=== PATIENT | male | born 1935 | race Caucasian/White ===

== ENCOUNTER 2017-11-23 13:02 | Inpatient (IN) | payer OTHER, MEDICARE ==
[~2017-11-23] VITALS: Ht 193 cm; Wt 90.9 kg
[2017-11-23 13:54] LABS: BASOPHILS % (AUTO) 0.5 % (0-1); EOSINOPHILS # (AUTO) 0.1 X10'3 (0-0.9); EOSINOPHILS % (AUTO) 0.9 % (0-6); HEMOGLOBIN 12.9 g/dl (14.0-17.9); LYMPHOCYTES # (AUTO) 0.7 X10'3 (1.1-4.8); LYMPHOCYTES % (AUTO) 9.6 % (21-51); MEAN CORPUSCULAR HEMOGLOBIN 31.9 PG (27.0-31.0); MEAN CORPUSCULAR VOLUME 96.7 FL (78-98); MEAN PLATELET VOLUME 9.2 FL (7.4-10.4); MONOCYTES # (AUTO) 0.9 X10'3 (0-0.9); MONOCYTES % (AUTO) 12.2 % (2-12); NEUTROPHILS # (AUTO) 5.6 X10'3 (1.8-7.7); NEUTROPHILS % (AUTO) 76.8 % (42-75); PLATELET COUNT 211 X10'3 (140-440); RED BLOOD COUNT 4.04 X10'6 (4.70-6.10); RED CELL DISTRIBUTION WIDTH 15.2 % (11.5-14.5); WHITE BLOOD COUNT 7.3 X10'3 (4.5-11.0)
[2017-11-23 14:03] LABS: INR 1.1 INR; PARTIAL THROMBOPLASTIN TIME 31 SECONDS (22-32); PROTHROMBIN TIME 11.4 SECONDS (9.0-12.0)
[2017-11-23 14:09] LABS: ALANINE AMINOTRANSFERASE 95 U/L (12-78); ALBUMIN 3.2 G/DL (3.4-5.0); ALBUMIN/GLOBULIN RATIO 0.8 (1.1-1.5); ALKALINE PHOSPHATASE 87 IU/L (46-116); ANION GAP 10 (8-16); ASPARTATE AMINO TRANSFERASE 81 U/L (10-37); BILIRUBIN,TOTAL 0.4 MG/DL (0.1-1.0); BLOOD UREA NITROGEN 48 MG/DL (7-18); BUN/CREATININE RATIO 31.6 (5.4-32.0); CALCIUM 8.7 MG/DL (8.5-10.1); CHLORIDE 102 MMOL/L (99-107); CREATININE 1.52 MG/DL (0.60-1.10); GLUCOSE 146 MG/DL (70-104); POTASSIUM 4.6 MMOL/L (3.5-5.1); SODIUM 141 MMOL/L (135-145); TOTAL CARBON DIOXIDE 28.8 MMOL/L (24-32); TOTAL PROTEIN 7.4 G/DL (6.4-8.2); eGFR 44 ML/MIN
[2017-11-23] MEDS ORDERED: heparin 10,000 units/1 ML INJ IV PRN ×2 (14:20→15:55)
[2017-11-23] MEDS ORDERED: heparin 10,000 units/1 ML INJ IV ONE ×2 (14:20→15:55)
[2017-11-23] MEDS ORDERED: normal saline 500ml IV soln 1,000 ML IV ONE (14:30)
[2017-11-23] MEDS ORDERED: LORazepam 2 mg/ml vial IV PRN ×2 (15:40→15:55)
[2017-11-23] MEDS ORDERED: acetaminophen 325mg tablet PO PRN (15:55)
[2017-11-23] MEDS ORDERED: magnesium 4gm in 100ml NS 100 ML IV PRN (15:55)
[2017-11-23] MEDS ORDERED: potassium Cl 20 mEq SR tablet PO PRN ×2 (15:55)
[2017-11-23] MEDS ORDERED: HYDROcodone/acetaminophen 10/325mg tab PO PRN (15:55)
[2017-11-23] MEDS ORDERED: magnesium hydroxide 30ml (MOM) UD suspension PO PRN (15:55)
[2017-11-23] MEDS ORDERED: magnesium Cl slow-release 64mg tablet PO PRN (15:55)
[2017-11-23] MEDS ORDERED: methylPREDNISolone sod succ 125mg/2ml vial IV ONE (15:55)
[2017-11-23] MEDS ORDERED: ondansetron/PF 4mg/2ml inj IV PRN (15:55)
[2017-11-23] MEDS ORDERED: MORPHINE 2MG in 2ml NS syringe IV PRN (15:55)
[2017-11-23] MEDS ORDERED: mag hydrox/Alum hydrox/simeth 30ml oral suspension PO PRN (15:55)
[2017-11-23] MEDS ORDERED: albuterol 2.5 MG/3 ML nebule NEB PRN (15:55)
[2017-11-23] MEDS ORDERED: magnesium 2GM in 50ml NS 50 ML IV PRN (15:55)
[2017-11-23] MEDS ORDERED: potassium Cl 40MEQ/NS 500ml 500 ML IV PRN ×2 (15:55)
[2017-11-23] MEDS: methylPREDNISolone sod succ/PF 40mg inj. IV SCH (19:37)
[2017-11-23 20:50] LABS: ABG BASE EXCESS -1.3 mmol/L (-2.0-3.0); ABG HCO3 26.3 mmol/L (22.0-26.0); ABG OXYGEN SATURATION 97.8 % (95-98); ABG PCO2 (T) 57.2 mmHg (35.0-48.0); ABG PH (T) 7.281 (7.350-7.450); ABG PO2 (T) 127.6 mmHg (83-108); ALLEN'S TEST Positive; FCOHb 0.7 % (0.5-1.5); FLOW 15 L/min; FMetHb 0.1 % (0.3-1.12); RESPIRATORY RATE (OBSERVED) 20 b/min; TOTAL HEMOGLOBIN 13.1 G/dl (14.0-18.0)
[2017-11-23] MEDS ORDERED: temazepam 15mg capsule PO PRN (21:00)
[2017-11-23] MEDS: ipratropium/albuterol 3ml nebule NEB PRN ×2 (21:03→23:10)
[2017-11-23 23:06] LABS: PARTIAL THROMBOPLASTIN TIME 76 SECONDS (22-32)
[2017-11-24 02:11] LABS: BASOPHILS % (AUTO) 0.1 % (0-1); EOSINOPHILS % (AUTO) 0.6 % (0-6); HEMOGLOBIN 12.4 g/dl (14.0-17.9); LYMPHOCYTES # (AUTO) 0.5 X10'3 (1.1-4.8); LYMPHOCYTES % (AUTO) 8.3 % (21-51); MEAN CORPUSCULAR HEMOGLOBIN 32.2 PG (27.0-31.0); MEAN CORPUSCULAR HGB CONC 33.6 % (33.0-36.5); MEAN CORPUSCULAR VOLUME 95.9 FL (78-98); MEAN PLATELET VOLUME 8.8 FL (7.4-10.4); MONOCYTES # (AUTO) 0.2 X10'3 (0-0.9); MONOCYTES % (AUTO) 3.6 % (2-12); NEUTROPHILS # (AUTO) 4.8 X10'3 (1.8-7.7); NEUTROPHILS % (AUTO) 87.4 % (42-75); PLATELET COUNT 195 X10'3 (140-440); RED BLOOD COUNT 3.86 X10'6 (4.70-6.10); RED CELL DISTRIBUTION WIDTH 15.3 % (11.5-14.5); WHITE BLOOD COUNT 5.5 X10'3 (4.5-11.0)
[2017-11-24] MEDS: ipratropium/albuterol 3ml nebule NEB PRN (02:18)
[2017-11-24 02:30] LABS: ALBUMIN 3.1 G/DL (3.4-5.0); ANION GAP 7 (8-16); BLOOD UREA NITROGEN 45 MG/DL (7-18); BUN/CREATININE RATIO 36.3 (5.4-32.0); CALCIUM 9.1 MG/DL (8.5-10.1); CHLORIDE 104 MMOL/L (99-107); CREATININE 1.24 MG/DL (0.60-1.10); GLUCOSE 172 MG/DL (70-104); MAGNESIUM 2.1 MG/DL (1.5-2.4); POTASSIUM 5.3 MMOL/L (3.5-5.1); SODIUM 141 MMOL/L (135-145); eGFR 56 ML/MIN
[2017-11-24] MEDS: methylPREDNISolone sod succ/PF 40mg inj. IV SCH ×5 (02:39→19:51)
[2017-11-24] MEDS ORDERED: MOME13HF2 INH (06:01)
[2017-11-24] MEDS ORDERED: haloperidol lactate 5mg/ml inj IM STA (06:10)
[2017-11-24 08:00] VITALS: BP 104/71
[2017-11-24] MEDS: K and/or MAG REPLACEMENT MC SCH (08:00)
[2017-11-24] MEDS: aspirin 325mg tablet PO SCH (08:30)
[2017-11-24 09:00] VITALS: BP 93/62
[2017-11-24 11:00] VITALS: BP 93/60
[2017-11-24 11:05] LABS: ABG BASE EXCESS 0.5 mmol/L (-2.0-3.0); ABG HCO3 26.4 mmol/L (22.0-26.0); ABG OXYGEN SATURATION 88.2 % (95-98); ABG PCO2 (T) 47.4 mmHg (35.0-48.0); ABG PH (T) 7.363 (7.350-7.450); ABG PO2 (T) 61.1 mmHg (83-108); ALLEN'S TEST Positive; FCOHb 0.3 % (0.5-1.5); FLOW 15 L/min; FMetHb 0.2 % (0.3-1.12); FO2Hb 87.8 % (94-100); RESPIRATORY RATE (OBSERVED) 18 b/min; TOTAL HEMOGLOBIN 12.6 G/dl (14.0-18.0)
[2017-11-24 15:00] VITALS: BP 92/66
[2017-11-24 18:00] VITALS: BP 108/72
[2017-11-24] MEDS ORDERED: morphine 4 MG/ML inj SYRINge IV PRN (19:58)
[2017-11-24 22:00] VITALS: BP 98/62
[2017-11-25 01:42] LABS: BASOPHILS # (AUTO) 0.1 X10'3 (0-0.2); BASOPHILS % (AUTO) 0.8 % (0-1); EOSINOPHILS % (AUTO) 0 % (0-6); HEMATOCRIT 36.1 % (42.0-52.0); HEMOGLOBIN 12.1 g/dl (14.0-17.9); LYMPHOCYTES # (AUTO) 0.6 X10'3 (1.1-4.8); LYMPHOCYTES % (AUTO) 5.1 % (21-51); MEAN CORPUSCULAR HGB CONC 33.4 % (33.0-36.5); MEAN CORPUSCULAR VOLUME 95.7 FL (78-98); MEAN PLATELET VOLUME 9.6 FL (7.4-10.4); MONOCYTES # (AUTO) 0.5 X10'3 (0-0.9); MONOCYTES % (AUTO) 4.6 % (2-12); NEUTROPHILS # (AUTO) 9.7 X10'3 (1.8-7.7); NEUTROPHILS % (AUTO) 89.5 % (42-75); PLATELET COUNT 209 X10'3 (140-440); RED BLOOD COUNT 3.77 X10'6 (4.70-6.10); RED CELL DISTRIBUTION WIDTH 14.4 % (11.5-14.5); WHITE BLOOD COUNT 10.9 X10'3 (4.5-11.0)
[2017-11-25 01:52] LABS: ALBUMIN 2.9 G/DL (3.4-5.0); ANION GAP 5 (8-16); BLOOD UREA NITROGEN 47 MG/DL (7-18); BUN/CREATININE RATIO 42.7 (5.4-32.0); CALCIUM 8.9 MG/DL (8.5-10.1); CHLORIDE 106 MMOL/L (99-107); GLUCOSE 150 MG/DL (70-104); MAGNESIUM 2.2 MG/DL (1.5-2.4); POTASSIUM 5.1 MMOL/L (3.5-5.1); SODIUM 142 MMOL/L (135-145); TOTAL CARBON DIOXIDE 30.8 MMOL/L (24-32); eGFR 64 ML/MIN
[2017-11-25 02:00] VITALS: BP 85/51
[2017-11-25] MEDS: methylPREDNISolone sod succ/PF 40mg inj. IV SCH ×4 (02:12→20:24)
[2017-11-25 06:00] VITALS: BP 97/60
[2017-11-25] MEDS: aspirin 325mg tablet PO SCH (07:36)
[2017-11-25] MEDS: K and/or MAG REPLACEMENT MC SCH (08:00)
[2017-11-25 11:00] VITALS: BP 91/65
[2017-11-25 15:00] VITALS: BP 116/66
[2017-11-25 18:00] VITALS: BP 111/73
[2017-11-25 22:00] VITALS: BP 101/70
[2017-11-26 02:00] VITALS: BP 88/59
[2017-11-26] MEDS: methylPREDNISolone sod succ/PF 40mg inj. IV SCH ×4 (02:22→20:21)
[2017-11-26 05:49] LABS: BASOPHILS % (AUTO) 0.1 % (0-1); EOSINOPHILS % (AUTO) 0 % (0-6); HEMATOCRIT 33.2 % (42.0-52.0); HEMOGLOBIN 11.2 g/dl (14.0-17.9); LYMPHOCYTES # (AUTO) 0.4 X10'3 (1.1-4.8); LYMPHOCYTES % (AUTO) 3.9 % (21-51); MEAN CORPUSCULAR HGB CONC 33.7 % (33.0-36.5); MEAN PLATELET VOLUME 9.5 FL (7.4-10.4); MONOCYTES # (AUTO) 0.8 X10'3 (0-0.9); MONOCYTES % (AUTO) 7.3 % (2-12); NEUTROPHILS # (AUTO) 9.4 X10'3 (1.8-7.7); NEUTROPHILS % (AUTO) 88.7 % (42-75); PLATELET COUNT 192 X10'3 (140-440); RED CELL DISTRIBUTION WIDTH 15.2 % (11.5-14.5); WHITE BLOOD COUNT 10.6 X10'3 (4.5-11.0)
[2017-11-26 06:00] VITALS: BP 90/63
[2017-11-26 06:43] LABS: ALBUMIN 2.6 G/DL (3.4-5.0); ANION GAP 8 (8-16); BLOOD UREA NITROGEN 48 MG/DL (7-18); CALCIUM 8.8 MG/DL (8.5-10.1); CHLORIDE 104 MMOL/L (99-107); GLUCOSE 156 MG/DL (70-104); MAGNESIUM 2.1 MG/DL (1.5-2.4); POTASSIUM 4.7 MMOL/L (3.5-5.1); SODIUM 142 MMOL/L (135-145); TOTAL CARBON DIOXIDE 29.7 MMOL/L (24-32); eGFR 71 ML/MIN
[2017-11-26] MEDS: K and/or MAG REPLACEMENT MC SCH (08:00)
[2017-11-26 11:00] VITALS: BP 115/77
[2017-11-26] MEDS: aspirin 325mg tablet PO SCH (11:00)
[2017-11-26] MEDS: ipratropium/albuterol 3ml nebule NEB SCH ×4 (11:30→23:07)
[2017-11-26] MEDS ORDERED: CefTRIAXone/D5W-Rocephin 1gm 50 ML IV ONE (11:30)
[2017-11-26 15:00] VITALS: BP 110/76
[2017-11-26] MEDS ORDERED: iohexol 350MG/ML 100ml bottle IV ONE (17:20)
[2017-11-26 18:00] VITALS: BP 117/71
[2017-11-26 20:01] LABS: ABG BASE EXCESS 4.4 mmol/L (-2.0-3.0); ABG HCO3 29.9 mmol/L (22.0-26.0); ABG OXYGEN SATURATION 81.3 % (95-98); ABG PCO2 (T) 46.7 mmHg (35.0-48.0); ABG PH (T) 7.421 (7.350-7.450); ABG PO2 (T) 44.3 mmHg (83-108); ALLEN'S TEST Positive; FCOHb 0.9 % (0.5-1.5); FLOW 10 L/min; FMetHb 0.1 % (0.3-1.12); FO2Hb 80.5 % (94-100); PATIENT TEMPERATURE 36.2; TOTAL HEMOGLOBIN 13.2 G/dl (14.0-18.0)
[2017-11-26] MEDS: budesonide 0.5mg/2ml UD nebule IH SCH (20:06)
[2017-11-26] MEDS: DEXTROSE 5% IV SCH (20:21)
[2017-11-26] MEDS: DOXYCYCLINE IV SCH (20:21)
[2017-11-26] MEDS: WATER IV SCH (20:21)
[2017-11-26] MEDS ORDERED: haloperidol lactate 5mg/ml inj IM ONE (21:20)
[2017-11-26 22:00] VITALS: BP 117/69
[2017-11-27 02:00] VITALS: BP 101/65
[2017-11-27] MEDS: methylPREDNISolone sod succ/PF 40mg inj. IV SCH ×4 (02:16→21:11)
[2017-11-27] MEDS: ipratropium/albuterol 3ml nebule NEB SCH ×6 (02:58→22:52)
[2017-11-27 06:23] LABS: BASOPHILS % (AUTO) 0 % (0-1); EOSINOPHILS % (AUTO) 0 % (0-6); HEMATOCRIT 32.8 % (42.0-52.0); HEMOGLOBIN 10.9 g/dl (14.0-17.9); LYMPHOCYTES # (AUTO) 0.3 X10'3 (1.1-4.8); LYMPHOCYTES % (AUTO) 3.3 % (21-51); MEAN CORPUSCULAR HEMOGLOBIN 31.6 PG (27.0-31.0); MEAN CORPUSCULAR HGB CONC 33.1 % (33.0-36.5); MEAN CORPUSCULAR VOLUME 95.4 FL (78-98); MEAN PLATELET VOLUME 9.6 FL (7.4-10.4); MONOCYTES # (AUTO) 0.6 X10'3 (0-0.9); MONOCYTES % (AUTO) 6.5 % (2-12); NEUTROPHILS # (AUTO) 8.2 X10'3 (1.8-7.7); NEUTROPHILS % (AUTO) 90.2 % (42-75); PLATELET COUNT 197 X10'3 (140-440); RED BLOOD COUNT 3.44 X10'6 (4.70-6.10); RED CELL DISTRIBUTION WIDTH 14.8 % (11.5-14.5); WHITE BLOOD COUNT 9.1 X10'3 (4.5-11.0)
[2017-11-27 06:45] LABS: ALBUMIN 2.8 G/DL (3.4-5.0); ANION GAP 6 (8-16); BLOOD UREA NITROGEN 39 MG/DL (7-18); BUN/CREATININE RATIO 54.2 (5.4-32.0); CALCIUM 8.9 MG/DL (8.5-10.1); CHLORIDE 107 MMOL/L (99-107); CREATININE 0.72 MG/DL (0.60-1.10); GLUCOSE 124 MG/DL (70-104); MAGNESIUM 1.9 MG/DL (1.5-2.4); POTASSIUM 4.5 MMOL/L (3.5-5.1); SODIUM 143 MMOL/L (135-145); TOTAL CARBON DIOXIDE 29.8 MMOL/L (24-32); eGFR > 90 ML/MIN
[2017-11-27 07:00] VITALS: BP 127/72
[2017-11-27] MEDS: aspirin 325mg tablet PO SCH (07:32)
[2017-11-27] MEDS: CefTRIAXone/D5W-Rocephin 1gm 50 ML IV SCH (07:32)
[2017-11-27] MEDS: K and/or MAG REPLACEMENT MC SCH (08:00)
[2017-11-27] MEDS: WATER IV SCH ×2 (08:00→21:11)
[2017-11-27] MEDS: DEXTROSE 5% IV SCH ×2 (08:00→21:11)
[2017-11-27] MEDS: budesonide 0.5mg/2ml UD nebule IH SCH ×2 (08:00→19:40)
[2017-11-27] MEDS: DOXYCYCLINE IV SCH ×2 (08:00→21:11)
[2017-11-27 11:00] VITALS: BP 129/70
[2017-11-27 15:00] VITALS: BP 134/82
[2017-11-27 19:00] VITALS: BP 126/55
[2017-11-27] MEDS: lactobacillus rhamnosus 10,000 MMU CELLS/CAPSULE PO SCH (21:11)
[2017-11-27 23:00] VITALS: BP 136/80
[2017-11-28] MEDS: methylPREDNISolone sod succ/PF 40mg inj. IV SCH ×4 (02:17→19:48)
[2017-11-28 03:00] VITALS: BP 112/70
[2017-11-28] MEDS: ipratropium/albuterol 3ml nebule NEB SCH ×6 (03:22→23:02)
[2017-11-28 05:12] LABS: BASOPHILS % (AUTO) 0 % (0-1); EOSINOPHILS # (AUTO) 0.1 X10'3 (0-0.9); HEMATOCRIT 34.1 % (42.0-52.0); HEMOGLOBIN 11.3 g/dl (14.0-17.9); LYMPHOCYTES # (AUTO) 0.3 X10'3 (1.1-4.8); LYMPHOCYTES % (AUTO) 3.8 % (21-51); MEAN CORPUSCULAR HEMOGLOBIN 31.9 PG (27.0-31.0); MEAN CORPUSCULAR HGB CONC 33.2 % (33.0-36.5); MEAN CORPUSCULAR VOLUME 96.2 FL (78-98); MEAN PLATELET VOLUME 9.5 FL (7.4-10.4); MONOCYTES # (AUTO) 0.4 X10'3 (0-0.9); MONOCYTES % (AUTO) 4.1 % (2-12); NEUTROPHILS # (AUTO) 7.8 X10'3 (1.8-7.7); NEUTROPHILS % (AUTO) 91.1 % (42-75); PLATELET COUNT 201 X10'3 (140-440); RED BLOOD COUNT 3.55 X10'6 (4.70-6.10); RED CELL DISTRIBUTION WIDTH 15.2 % (11.5-14.5); WHITE BLOOD COUNT 8.6 X10'3 (4.5-11.0)
[2017-11-28 05:20] LABS: ALBUMIN 2.6 G/DL (3.4-5.0); ANION GAP 5 (8-16); BLOOD UREA NITROGEN 34 MG/DL (7-18); BUN/CREATININE RATIO 51.5 (5.4-32.0); CALCIUM 9.1 MG/DL (8.5-10.1); CHLORIDE 106 MMOL/L (99-107); CREATININE 0.66 MG/DL (0.60-1.10); GLUCOSE 114 MG/DL (70-104); POTASSIUM 4.8 MMOL/L (3.5-5.1); SODIUM 145 MMOL/L (135-145); TOTAL CARBON DIOXIDE 34.3 MMOL/L (24-32); eGFR > 90 ML/MIN
[2017-11-28 06:38] VITALS: BP 102/57
[2017-11-28] MEDS: CefTRIAXone/D5W-Rocephin 1gm 50 ML IV SCH (07:44)
[2017-11-28] MEDS: aspirin 325mg tablet PO SCH (07:45)
[2017-11-28] MEDS: DEXTROSE 5% IV SCH ×2 (07:45→19:48)
[2017-11-28] MEDS: WATER IV SCH ×2 (07:45→19:48)
[2017-11-28] MEDS: lactobacillus rhamnosus 10,000 MMU CELLS/CAPSULE PO SCH ×2 (07:45→19:48)
[2017-11-28] MEDS: DOXYCYCLINE IV SCH ×2 (07:45→19:48)
[2017-11-28] MEDS: K and/or MAG REPLACEMENT MC SCH (08:00)
[2017-11-28] MEDS: budesonide 0.5mg/2ml UD nebule IH SCH ×2 (08:58→19:23)
[2017-11-28 11:00] VITALS: BP 109/61
[2017-11-28 15:00] VITALS: BP 91/62
[2017-11-28 19:00] VITALS: BP 102/63
[2017-11-28 23:00] VITALS: BP 112/77
[2017-11-29] MEDS: methylPREDNISolone sod succ/PF 40mg inj. IV SCH (01:50)
[2017-11-29 03:00] VITALS: BP 111/70
[2017-11-29] MEDS: ipratropium/albuterol 3ml nebule NEB SCH ×3 (03:00→14:44)
[2017-11-29 06:30] VITALS: BP 123/79
[2017-11-29] MEDS: lactobacillus rhamnosus 10,000 MMU CELLS/CAPSULE PO SCH (08:00)
[2017-11-29] MEDS: CefTRIAXone/D5W-Rocephin 1gm 50 ML IV SCH (08:00)
[2017-11-29] MEDS: K and/or MAG REPLACEMENT MC SCH (08:00)
[2017-11-29] MEDS: aspirin 325mg tablet PO SCH (08:30)
[2017-11-29] MEDS ORDERED: OLANZapine **IM** 10 mg inj. IM ONE (09:10)
[2017-11-29] MEDS ORDERED: LORazepam 2 mg/ml vial IV PRN ×2 (09:10→15:35)
[2017-11-29] MEDS ORDERED: ipratropium/albuterol 3ml nebule NEB PRN (09:10)
[2017-11-29] MEDS ORDERED: OLANZapine 2.5MG tablet PO SCH (09:10)
[2017-11-29] MEDS ORDERED: OLANZapine 5mg rapidly disint. tablet PO SCH (09:20)
[2017-11-29 11:00] VITALS: BP 89/46
[2017-11-29] MEDS ORDERED: methylPREDNISolone sod succ/PF 40mg inj. IV SCH (14:00)
[2017-11-29 15:00] VITALS: BP 88/59
[2017-11-29] MEDS ORDERED: morphine 10mg/ml inj. IV PRN ×3 (15:35→15:50)
[2017-11-30] MEDS ORDERED: ondansetron 4mg rapidly disintigrating tab PO PRN (14:25)
[2017-11-30] MEDS ORDERED: OLAN2.5T28 PO (14:51)
[2017-11-30 17:00] VITALS: BP 98/68
[2017-12-01 07:08] VITALS: BP 147/80
[2017-12-01] MEDS: OLANZapine 2.5MG tablet PO SCH (09:00)
[2017-12-01 18:00] VITALS: BP 98/68
[2017-12-02] MEDS ORDERED: LORazepam 1 MG tablet PO PRN ×2 (04:05)
[2017-12-02 07:09] VITALS: BP 88/54
[2017-12-02] MEDS: OLANZapine 2.5MG tablet PO SCH (08:00)
[2017-12-02] MEDS ORDERED: OLAN5TAB5 PO (09:15)
== END 2017-12-02 10:05 | disposition hospice, inpatient (51) | DRG 280 ==
LOC: ER 13:02 → ED HOLD 15:51 → PCU 3S 11-24 07:42
PROVIDERS: ADMIT Internal Medicine; ATTEND Family Medicine
PROC: 5A09457 Assistance with Respiratory Ventilation, 24-96 Consecutive Hours, Continuous Positive Airway Pressure (ICD-10-PCS; principal; 2017-11-23)
PROC: B32T1ZZ Computerized Tomography (CT Scan) of Left Pulmonary Artery using Low Osmolar Contrast (ICD-10-PCS; 2017-11-26)
PROC: B3201ZZ Computerized Tomography (CT Scan) of Thoracic Aorta using Low Osmolar Contrast (ICD-10-PCS; 2017-11-26)
PROC: B32S1ZZ Computerized Tomography (CT Scan) of Right Pulmonary Artery using Low Osmolar Contrast (ICD-10-PCS; 2017-11-26)
DX: I21.4 Non-ST elevation (NSTEMI) myocardial infarction (principal); E43 Unspecified severe protein-calorie malnutrition; J96.21 Acute and chronic respiratory failure with hypoxia; N17.0 Acute kidney failure with tubular necrosis; G93.41 Metabolic encephalopathy; J96.22 Acute and chronic respiratory failure with hypercapnia; E87.4 Mixed disorder of acid-base balance; J44.1 Chronic obstructive pulmonary disease with (acute) exacerbation; F03.91 Unspecified dementia, unspecified severity, with behavioral disturbance; D64.9 Anemia, unspecified; E16.2 Hypoglycemia, unspecified; N18.9 Chronic kidney disease, unspecified; I25.10 Atherosclerotic heart disease of native coronary artery without angina pectoris; I27.21 Secondary pulmonary arterial hypertension; N40.0 Benign prostatic hyperplasia without lower urinary tract symptoms; Z51.5 Encounter for palliative care; Z66 Do not resuscitate; Z78.1 Physical restraint status; Z68.24 Body mass index [BMI] 24.0-24.9, adult
CPT/HCPCS: 36415; 36600; 71045; 71275; 80048; 80053; 82803; 83735; 84484; 85018; 85025; 85610; 85730; 87070; 93005; 93306; 94640; 94660; 94760; 96374; 99285; A4620; A6213; J0696; J1630; J1644; J2060; J2270; J2920; J2930; J3490; J7030; J7060; J7626; Q9967